=== PATIENT | female | born 1950 | race Caucasian/White ===

== ENCOUNTER → 2016-08-23 | Outpatient (CLI) | payer OTHER ==
--- NOTE | 2016-08-23 14:51 | DIAGNOSTIC IMAGING REPORT ---
NUCLEAR MEDICINE VENTILATION/PERFUSION SCAN HISTORY: ELEVATED D DIMER, tachypnea TECHNIQUE: Immediately following the inhalation of 28.7 mCi of technetium 99 M DTPA for the ventilation scan and the intravenous injection of 5.8 mCi of technetium 99 M MAA for the perfusion scan, anterior, posterior, oblique, lateral views of the chest were performed. COMPARISON STUDY: Chest 08/23/2016. FINDINGS: There is normal perfusion and ventilation throughout the lungs. There are no defects identified. IMPRESSION: Normal ventilation/perfusion scan. Electronically signed by: Fritz Higgins M.D. 08/23/2016 2:50 PM Dictated Date/Time: 08/23/2016 2:47 PM
--- NOTE | 2016-08-23 14:51 | DIAGNOSTIC IMAGING REPORT ---
TWO VIEW CHEST CLINICAL HISTORY: Tachypnea. Elevated d-dimer. FINDINGS: PA and lateral chest radiographs are obtained. No prior studies are available for comparison at the time of dictation. The cardiomediastinal silhouette is unremarkable. The lungs and pleural spaces are clear. There is no pneumothorax. The skeletal structures are osteopenic. Mild scoliosis is noted in the thoracic spine. IMPRESSION: No active disease in the chest. Electronically signed by: Devonte Oakley M.D. 08/23/2016 2:50 PM Dictated Date/Time: 08/23/2016 2:49 PM
== END | disposition home or self-care (01) ==
LOC: C.NUCL 13:47
PROVIDERS: ATTEND Nurse Practitioner Family
DX: R06.02 Shortness of breath (principal); R79.1 Abnormal coagulation profile; R06.82 Tachypnea, not elsewhere classified